=== PATIENT | female | born 1975 | race African-American/Black ===

== ENCOUNTER 2016-04-21 08:13 | Emergency (ER) | payer SELFPAY ==
[~2016-04-21] VITALS: Ht 170.2 cm; Wt 100.0 kg
[~2016-04-21 08:13] MED LIST: ACET325 PO; ALBU25IPRN INH; DEPA250T2 PO; PROZ20CA11 PO; RISP1 PO; ZOFR4TAB3 SL
[2016-04-21 08:35] VITALS: BP 136/85; PULSE 64; RESP 18; TEMP 97.8; O2SAT 96
[2016-04-21] MEDS ORDERED: MOXIFLOXACIN 0.5% OPHT SOLN 3 ML BTL RIGHT EYE ONE (09:15)
[2016-04-21] MEDS ORDERED: ERYTHROMYCIN 0.5% OPTH OINT 3.5 GM TUBO RIGHT EYE ONE (09:30)
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
[2016-04-21] MEDS ORDERED: ERYTOIN10 RIGHT EYE (10:21)
[2016-04-21] MEDS ORDERED: IBUP800T23 PO (10:22)
[2016-04-28] MEDS ORDERED: ALBU.5I NEB (11:20)
== END 2016-04-21 10:34 | disposition home or self-care (01) ==
LOC: NEPB 08:13
DX: S05.01XA Injury of conjunctiva and corneal abrasion without foreign body, right eye, initial encounter (principal); S61.202A Unspecified open wound of right middle finger without damage to nail, initial encounter; I10 Essential (primary) hypertension; F20.9 Schizophrenia, unspecified; F17.210 Nicotine dependence, cigarettes, uncomplicated; F12.90 Cannabis use, unspecified, uncomplicated; Y04.2XXA Assault by strike against or bumped into by another person, initial encounter
CPT/HCPCS: 12001; 73140

== ENCOUNTER 2017-04-07 22:52 | Observation (INO) | payer SELFPAY ==
[~2017-04-07] VITALS: Ht 170.2 cm; Wt 103.2 kg
[~2017-04-07 22:52] MED LIST changes: -ACET325 PO; +ALBU.5I NEB; -ALBU25IPRN INH; +ERYTOIN10 RIGHT EYE; +IBUP1TAB7 PO
[2017-04-07 23:28] VITALS: BP 117/64; PULSE 50; RESP 20; TEMP 98.9; O2SAT 96
[2017-04-07] MEDS ORDERED: SODIUM CHLOR 0.9% 1000 ML INJ 1,000 ML IV ONE (23:43)
[2017-04-07] MEDS ORDERED: SODIUM CHLORIDE 0.9% FLUSH 10 ML FLUSH IVF PRN (23:45)
--- NOTE | 2017-04-07 23:53 | PD ---
HPI Chief Complaint: Syncope/Near-Syncope Time Seen by Provider: 23:35 Travel History International Travel<30 days: No Contact w/Intl Traveler<30days: No Traveled to known affect area: No History of Present Illness HPI Patient is a 42-year-old female with history of hypertension, seizure disorder who presents to emergency room with complaints of syncopal episode. 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 Reports that she felt as if she was going to pass out so she sat down onto a nearby chair and had syncopal episode. Patient reports that she was "out" for a few minutes and then came to. Patient reports that the chest pain felt like a sharp stabbing sensation to the left that her chest, patient denies any shortness of breath and diaphoresis symptoms. Patient did report nausea with her symptoms. Patient at this time with no chest pain. Patient also with no headache or dizziness. Patient with no other complaints at this time. Patient denies any use of drugs or alcohol. Patient does smoke cigarettes. PFSH Past Medical History Asthma: Yes Anxiety: Yes Depression: Yes Diabetes: No Diminished Hearing: No Endocrine: No Gastrointestinal Disorders: No GERD: Yes Genitourinary: No Hypertension: Yes Immune Disorder: No Musculoskeletal: No Neurologic: No Psychiatric: Yes (SCHIZOPHRENIA) Reproductive: No Respiratory: Yes (asthma) Immunizations Current: No Migraines: Yes Schizophrenia: Yes Influenza Vaccination: No PNEUMOCCOCAL Vaccine (Year): 3 ?: Not LMP: 12-14-17 Menopausal: No : 6 Para: 5 Miscarriage: 0 : 1 Tubal Ligation: Yes Past Surgical History Abdominal Surgery: Yes (Gall bladder) Cholecystectomy: Yes Gynecologic Surgery: Yes (TUBAL) Social History Alcohol Use: Yes (Occasionally) Tobacco Use: Yes (1 ppd) Substance Use: Yes (Marijuana) Allergies-Medications (Allergen,Severity, Reaction): Coded Allergies: No Known Allergies (Verified , 04/28/16) Reported Meds & Prescriptions Reported Meds & Active Scripts Active Reported Albuterol Neb (Albuterol Sulfate) 2.5 Mg/0.5 Ml Neb 2.5 Mg NEB Q1H PRN Note: The Albuterol Sulfate Inhalation Solution is concentrated and must be diluted. Read complete instructions carefully before using. Review of Systems General / Constitutional: No: Fever Eyes: No: Visual changes HENT: No: Headaches Cardiovascular: Positive: Chest Pain or Discomfort, Syncope Respiratory: No: Shortness of Breath Gastrointestinal: No: Abdominal Pain Genitourinary: No: Dysuria Musculoskeletal: No: Pain Skin: No Rash Neurologic: Positive: Syncope, No: Weakness Psychiatric: No: Depression Endocrine: No: Polydipsia Hematologic/Lymphatic: No: Easy Bruising Physical Exam Narrative GENERAL: mild distress SKIN: Focused skin assessment warm/dry. HEAD: Atraumatic. Normocephalic. EYES: Pupils equal and round. No scleral icterus. No injection or drainage. ENT: No nasal bleeding or discharge. Mucous membranes pink and moist. NECK: Trachea midline. No JVD. CARDIOVASCULAR: Regular rate and rhythm. No murmur appreciated. RESPIRATORY: No accessory muscle use. Clear to auscultation. Breath sounds equal bilaterally. GASTROINTESTINAL: Abdomen soft, non-tender, nondistended. Hepatic and splenic margins not palpable. MUSCULOSKELETAL: No obvious deformities. No clubbing. No cyanosis. No edema. NEUROLOGICAL: Awake and alert. No obvious cranial nerve deficits. Motor grossly within normal limits. Normal speech. CN 2-12 grossly intact with no neurological deficits PSYCHIATRIC: Appropriate mood and affect; insight and judgment normal. Data Data Last Documented VS Vital Signs Date Time Temp Pulse Resp B/P (MAP) Pulse Ox O2 Delivery O2 Flow Rate FiO2 04/07/17 23:59 51 20 135/79 (97) 100 Room Air 04/07/17 23:28 98.9 Orders Orders Electrocardiogram (04/07/17 ) Ed Urine Pregnancytest Poc (04/07/17 23:43) Complete Blood Count With Diff (04/07/17 23:43) Comprehensive Metabolic Panel (04/07/17 23:43) Magnesium (Mg) (04/07/17 23:43) B-Type Natriuretic Peptide (04/07/17 23:43) Ckmb (Isoenzyme) Profile (04/07/17 23:43) Troponin I (04/07/17 23:43) Act Partial Throm Time (Ptt) (04/07/17 23:43) Prothrombin Time / Inr (Pt) (04/07/17 23:43) Urinalysis - C+S If Indicated (04/07/17 23:43) Chest, Single Ap (04/07/17 23:43) Ecg Monitoring (04/07/17 23:43) Iv Access Insert/Monitor (04/07/17 23:43) Oximetry (04/07/17 23:43) Sodium Chloride 0.9% Flush (Ns Flush) (04/07/17 23:45) Sodium Chlor 0.9% 1000 Ml Inj (Ns 1000 M (04/07/17 23:43) Drug Screen, Random Urine (04/07/17 23:50) Aspirin Chew (Aspirin Chew) (04/08/17 00:00) CKMB (04/07/17 23:45) CKMB% (04/07/17 23:45) Labs Laboratory Tests Test 04/07/17 23:45 White Blood Count 7.7 TH/MM3 Red Blood Count 3.86 MIL/MM3 Hemoglobin 11.5 GM/DL Hematocrit 32.9 % Mean Corpuscular Volume 85.1 FL Mean Corpuscular Hemoglobin 29.8 PG Mean Corpuscular Hemoglobin Concent 35.0 % Red Cell Distribution Width 15.4 % Platelet Count 303 TH/MM3 Mean Platelet Volume 8.3 FL Neutrophils (%) (Auto) 45.3 % Lymphocytes (%) (Auto) 41.9 % Monocytes (%) (Auto) 8.3 % Eosinophils (%) (Auto) 3.5 % Basophils (%) (Auto) 1.0 % Neutrophils # (Auto) 3.5 TH/MM3 Lymphocytes # (Auto) 3.2 TH/MM3 Monocytes # (Auto) 0.6 TH/MM3 Eosinophils # (Auto) 0.3 TH/MM3 Basophils # (Auto) 0.1 TH/MM3 CBC Comment DIFF FINAL Differential Comment Prothrombin Time 10.7 SEC Prothromb Time International Ratio 1.1 RATIO Activated Partial Thromboplast Time 27.0 SEC Urine Color COLORLESS Urine Turbidity CLEAR Urine pH 6.0 Urine Specific [place] 1.003 Urine Protein NEG mg/dL Urine Glucose (UA) NEG mg/dL Urine Ketones NEG mg/dL Urine Occult Blood NEG Urine Nitrite NEG Urine Bilirubin NEG Urine Urobilinogen LESS THAN 2.0 MG/DL Urine Leukocyte Esterase NEG Urine WBC LESS THAN 1 /hpf Urine Squamous Epithelial Cells <1 /hpf Microscopic Urinalysis Comment CULT NOT INDICATED Blood Urea Nitrogen 10 MG/DL Creatinine 1.12 MG/DL Random Glucose 88 MG/DL Total Protein 7.4 GM/DL Albumin 3.5 GM/DL Calcium Level 8.6 MG/DL Magnesium Level 1.9 MG/DL Alkaline Phosphatase 60 U/L Aspartate Amino Transf (AST/SGOT) 13 U/L Alanine Aminotransferase (ALT/SGPT) 14 U/L Total Bilirubin 0.5 MG/DL Sodium Level 141 MEQ/L Potassium Level 3.1 MEQ/L Chloride Level 106 MEQ/L Carbon Dioxide Level 24.5 MEQ/L Anion Gap 11 MEQ/L Estimat Glomerular Filtration Rate 64 ML/MIN Total Creatine Kinase 214 U/L Creatine Kinase MB 0.6 NG/ML Creatine Kinase MB % 0.3 % Troponin I LESS THAN 0.02 NG/ML B-Type Natriuretic Peptide 31 PG/ML Urine Opiates Screen NEG Urine Barbiturates Screen NEG Urine Amphetamines Screen NEG Urine Benzodiazepines Screen NEG Urine Cocaine Screen NEG Urine Cannabinoids Screen POS MDM Medical Decision Making Medical Screen Exam Complete: Yes Emergency Medical Condition: Yes Medical Record Reviewed: Yes Interpretation(s) EKG at 2344: Sinus dandre at 47bpm, t wave inversion V1-V2- similar when compared to ekg from 11/21/15 Vital Signs Date Time Temp Pulse Resp B/P (MAP) Pulse Ox O2 Delivery O2 Flow Rate FiO2 04/07/17 23:28 98.9 50 20 117/64 (81) 96 Differential Diagnosis ACS, arrhythmia, electrolyte abnormality, pneumothorax, PE Narrative Course Patient is a 42-year-old female who presents to emergency room after she began to have left sided chest pain while at work and then suffered a syncopal episode. Patient this time with no complaints, denies any headache or dizziness or shortness of breath. During the course of the patients emergency department visit, the patients history, examination, and differential diagnosis were reviewed with the patient. The patient was placed on a bus driver/monitor with oximetry and frequent blood pressure monitoring. The patient had a 20-gauge IV access obtained and blood work sent for analysis. The patient was initially provided aspirin as well as IV fluids. The patients laboratory studies were reviewed and remarkable for: Laboratory Tests Test 04/07/17 23:45 White Blood Count 7.7 TH/MM3 (4.0-11.0) Red Blood Count 3.86 MIL/MM3 (4.00-5.30) Hemoglobin 11.5 GM/DL (11.6-15.3) Hematocrit 32.9 % (35.0-46.0) Mean Corpuscular Volume 85.1 FL (80.0-100.0) Mean Corpuscular Hemoglobin 29.8 PG (27.0-34.0) Mean Corpuscular Hemoglobin Concent 35.0 % (32.0-36.0) Red Cell Distribution Width 15.4 % (11.6-17.2) Platelet Count 303 TH/MM3 (150-450) Mean Platelet Volume 8.3 FL (7.0-11.0) Neutrophils (%) (Auto) 45.3 % (16.0-70.0) Lymphocytes (%) (Auto) 41.9 % (9.0-44.0) Monocytes (%) (Auto) 8.3 % (0.0-8.0) Eosinophils (%) (Auto) 3.5 % (0.0-4.0) Basophils (%) (Auto) 1.0 % (0.0-2.0) Neutrophils # (Auto) 3.5 TH/MM3 (1.8-7.7) Lymphocytes # (Auto) 3.2 TH/MM3 (1.0-4.8) Monocytes # (Auto) 0.6 TH/MM3 (0-0.9) Eosinophils # (Auto) 0.3 TH/MM3 (0-0.4) Basophils # (Auto) 0.1 TH/MM3 (0-0.2) CBC Comment DIFF FINAL Differential Comment Prothrombin Time 10.7 SEC (9.8-11.6) Prothromb Time International Ratio 1.1 RATIO Activated Partial Thromboplast Time 27.0 SEC (24.3-30.1) Urine Color COLORLESS (YELLW/STRAW) Urine Turbidity CLEAR (CLEAR) Urine pH 6.0 (5.0-8.5) Urine Specific [place] 1.003 (1.002-1.035) Urine Protein NEG mg/dL (NEG-TRACE) Urine Glucose (UA) NEG mg/dL (NEG) Urine Ketones NEG mg/dL (NEG) Urine Occult Blood NEG (NEG) Urine Nitrite NEG (NEG) Urine Bilirubin NEG (NEG) Urine Urobilinogen LESS THAN 2.0 MG/DL (LESS Urine Leukocyte Esterase NEG (NEG) Urine WBC LESS THAN 1 /hpf (0-5) Urine Squamous Epithelial Cells <1 /hpf (0-5) Microscopic Urinalysis Comment CULT NOT INDICATED Blood Urea Nitrogen 10 MG/DL (7-18) Creatinine 1.12 MG/DL (0.50-1.00) Random Glucose 88 MG/DL (74-106) Total Protein 7.4 GM/DL (6.4-8.2) Albumin 3.5 GM/DL (3.4-5.0) Calcium Level 8.6 MG/DL (8.5-10.1) Magnesium Level 1.9 MG/DL (1.5-2.5) Alkaline Phosphatase 60 U/L (45-117) Aspartate Amino Transf (AST/SGOT) 13 U/L (15-37) Alanine Aminotransferase (ALT/SGPT) 14 U/L (10-53) Total Bilirubin 0.5 MG/DL (0.2-1.0) Sodium Level 141 MEQ/L (136-145) Potassium Level 3.1 MEQ/L (3.5-5.1) Chloride Level 106 MEQ/L (98-107) Carbon Dioxide Level 24.5 MEQ/L (21.0-32.0) Anion Gap 11 MEQ/L (5-15) Estimat Glomerular Filtration Rate 64 ML/MIN (>89) Total Creatine Kinase 214 U/L (26-192) Creatine Kinase MB 0.6 NG/ML (0.5-3.6) Creatine Kinase MB % 0.3 % (0.0-4.0) Troponin I LESS THAN 0.02 NG/ML B-Type Natriuretic Peptide 31 PG/ML (0-100) Urine Opiates Screen NEG (NEG) Urine Barbiturates Screen NEG (NEG) Urine Amphetamines Screen NEG (NEG) Urine Benzodiazepines Screen NEG (NEG) Urine Cocaine Screen NEG (NEG) Urine Cannabinoids Screen POS (NEG) I reviewed all labs and studies with patient in detail. Patient currently symptomatic free at this time. Plan to obs for syncope with chest pain Case reviewed with Dr. Tejeda who accepts pt to service Diagnosis Primary Impression: Syncope and collapse Additional Impression: Chest pain Admitting Information Admitting Physician Requests: Observation Giovanna Parrish DO Apr 07, 2017 23:53
[2017-04-07 23:59] VITALS: BP 135/79; PULSE 51; RESP 20; O2SAT 100
[2017-04-08] VITALS (11 sets, daily range): BP systolic 103–153; BP diastolic 56–87; PULSE 46–75; RESP 16–22; TEMP 97.8–98.7; O2SAT 95–100
[2017-04-08] MEDS ORDERED: ASPIRIN 81 MG CHEW TAB PO ONE
[2017-04-08 00:06] LABS: AUTOMATED NEUTROPHIL # 3.5 TH/MM3 (1.8-7.7); BASOPHIL # 0.1 TH/MM3 (0-0.2); EOSINOPHIL # 0.3 TH/MM3 (0-0.4); EOSINOPHIL % 3.5 % (0.0-4.0); HEMATOCRIT 32.9 % (35.0-46.0); HEMOGLOBIN 11.5 GM/DL (11.6-15.3); LYMPH % 41.9 % (9.0-44.0); LYMPHOCYTE # 3.2 TH/MM3 (1.0-4.8); MEAN CELL VOLUME 85.1 FL (80.0-100.0); MEAN CORPUSCULAR HEMOGLOBIN 29.8 PG (27.0-34.0); MEAN PLATELET VOLUME 8.3 FL (7.0-11.0); MONO % 8.3 % (0.0-8.0); MONOCYTE # 0.6 TH/MM3 (0-0.9); NEUT % 45.3 % (16.0-70.0); PLATELET COUNT 303 TH/MM3 (150-450); RED BLOOD COUNT 3.86 MIL/MM3 (4.00-5.30); RED CELL DISTRIBUTION WIDTH 15.4 % (11.6-17.2); WHITE BLOOD COUNT 7.7 TH/MM3 (4.0-11.0)
[2017-04-08 00:14] LABS: BILIRUBIN, URINE NEG (NEG); BLOOD, URINE NEG (NEG); GLUCOSE,URINE NEG (NEG); KETONE, URINE NEG (NEG); NITRITE,URINE NEG (NEG); SQUAMOUS EPITHELIAL CELL URINE <1 /hpf (0-5); URINE COLOR COLORLESS (YELLW/STRAW); URINE LEUKOCYTE ESTERASE NEG (NEG)
[2017-04-08 00:19] LABS: INTERNATIONAL NORMALIZED RATIO 1.1 RATIO; PROTHROMBIN TIME - PATIENT 10.7 SEC (9.8-11.6)
[2017-04-08 00:22] LABS: ALBUMIN 3.5 GM/DL (3.4-5.0); ALT (GPT) 14 U/L (10-53); AST (GOT) 13 U/L (15-37); BICARBONATE 24.5 MEQ/L (21.0-32.0); BLOOD UREA NITROGEN 10 MG/DL (7-18); CALCIUM 8.6 MG/DL (8.5-10.1); CHLORIDE 106 MEQ/L (98-107); CREATININE 1.12 MG/DL (0.50-1.00); GLOMERULAR FILTRATION RATE 64 ML/MIN (>89); GLUCOSE,RANDOM 88 MG/DL (74-106); MAGNESIUM 1.9 MG/DL (1.5-2.5); SODIUM (NA) 141 MEQ/L (136-145)
[2017-04-08 00:27] LABS: ALKALINE PHOSPHATASE 60 U/L (45-117); TOTAL BILIRUBIN ADULT 0.5 MG/DL (0.2-1.0); TOTAL PROTEIN 7.4 GM/DL (6.4-8.2); TROPONIN I LESS THAN 0.02 NG/ML (0.02-0.05)
[2017-04-08] MEDS ORDERED: NITROGLYCERIN 2% OINT 1 GM PACKET TOPICAL PRN (00:45)
[2017-04-08] MEDS ORDERED: ONDANSETRON HCL 4 MG/2 ML VIAL IVP PRN (00:45)
[2017-04-08] MEDS ORDERED: SENNOSIDES 8.6 MG TAB PO PRN (00:45)
[2017-04-08] MEDS ORDERED: MORPHINE SULFATE 2 MG/ML INJ IV PUSH PRN (00:45)
[2017-04-08] MEDS ORDERED: LACTULOSE SYRUP 20 GM/30 ML CUP PO PRN (00:45)
[2017-04-08] MEDS ORDERED: ACETAMINOPHEN 325 MG TAB PO PRN (00:45)
[2017-04-08] MEDS ORDERED: BISACODYL 10 MG SUPP RECTAL PRN (00:45)
[2017-04-08] MEDS ORDERED: ACETAMINOPHEN/HYDROcodone 325 MG/5 MG TAB PO PRN (00:45)
[2017-04-08] MEDS ORDERED: SODIUM CHLORIDE 0.9% FLUSH 10 ML FLUSH IV FLUSH PRN (00:45)
[2017-04-08] MEDS ORDERED: POTASSIUM CHLORIDE 20 MEQ CONTROLLED RELEASE TAB PO ONE (00:45)
[2017-04-08] MEDS ORDERED: MAGNESIUM HYDROXIDE SUSP 30 ML CUP PO PRN (00:45)
--- NOTE | 2017-04-08 00:51 | RADRPT ---
EXAM DATE/TIME: 04/08/2017 00:08 [facility] COMPARISON: CHEST SINGLE AP, November 21, 2015, 5:05. INDICATIONS : Low heart rate, shortness of breath, and left sided chest pain. MEDICAL HISTORY : None. SURGICAL HISTORY : None. ENCOUNTER: Initial ACUITY: 1 day PAIN SCORE: 4/10 LOCATION: Left chest FINDINGS: A single view of the chest demonstrates the lungs to be symmetrically aerated without evidence of mas s, infiltrate or effusion. The cardiomediastinal contours are unremarkable. Osseous structures are intact. CONCLUSION: No acute disease. Elie Lee MD on April 08, 2017 at 0:48 Board Certified Radiologist. This report was verified electronically.
[2017-04-08] MEDS: SODIUM CHLOR 0.9% 1000 ML INJ 1,000 ML IV SCH ×3 (01:53→20:44)
--- NOTE | 2017-04-08 02:52 | HHI.HP ---
[facility] No Primary Care Physician Admission Diagnosis Chest pain/Syncope and Collapse Diagnoses: (1) Syncope Diagnosis: Principal (2) Chest pain Diagnosis: Principal (3) Bradycardia Diagnosis: Principal (4) Rhabdomyolysis Diagnosis: Principal (5) Renal insufficiency Diagnosis: Principal (6) Hypokalemia Diagnosis: Principal (7) HTN (hypertension) Diagnosis: Principal (8) Tobacco abuse Diagnosis: Principal Travel History International Travel<30 Days: No Contact w/Intl Traveler <30 Da: No Traveled to Known Affected Are: No History of Present Illness This is a 42 year-old female w/ a PMH of Anxiety, Depression, Schizophrenia, Migraines, HTN and Tobacco Abuse who presented to the ER after syncopal event. Per pt she was at work when she had acute onset of left-sided chest pain, reports associated lightheadedness/dizziness and subsequent syncopal event. No LOC. Denies fever, chills, cough or SOB. No h/o similar symptoms in the past. No reported seizure like activity. On arrival, BP 135/79, HR 51, O2 sat 100% on RA, Afebrile. CBC unremarkable. Creatinine 1.12, previously 1.10 on . K+ 3.1. Troponin negative. CPK 214. INR 1.1. Urine Drug Screen positive for THC. UA negative. CXR with no acute findings. Review of Systems Except as stated in HPI: all other systems reviewed are Neg ROS: 14 point review of systems otherwise negative. Past Family Social History Past Medical History PMH: Anxiety, Depression, Schizophrenia, Migraines, HTN and Tobacco Abuse Past Surgical History PAST SURGICAL HISTORY: Cholecystectomy, Tubal Ligation Allergies: Coded Allergies: No Known Allergies (Verified Allergy, Unknown, 04/08/17) Family History PAST FAMILY HISTORY: Reviewed. No h/o DM or CADk Social History PAST SOCIAL HISTORY: Occasional alcohol. Smokes 1ppd. +Marijuana. Physical Exam Vital Signs Vital Signs Date Time Temp Pulse Resp B/P (MAP) Pulse Ox O2 Delivery O2 Flow Rate FiO2 04/08/17 01:58 97.9 48 17 117/75 (89) 100 04/08/17 01:58 117/ 04/08/17 01:19 52 20 151/87 (108) 97 Room Air 04/07/17 23:59 51 20 135/79 (97) 100 Room Air 04/07/17 23:28 98.9 50 20 117/64 (81) 96 Physical Exam PE: GENERAL: Middle-aged female in no acute distress. HEENT: PERRLA, EOMI. No scleral icterus or conjunctival pallor. No lid lag or facial droop. CARDIOVASCULAR: Regular rate and rhythm. No obvious murmurs to auscultation. No chest tenderness to palpation. RESPIRATORY: No obvious rhonchi or wheezing. Clear to auscultation. Breath sounds equal bilaterally. GASTROINTESTINAL: Abdomen soft, non-tender, nondistended. BS normal. MUSCULOSKELETAL: Extremities without clubbing, cyanosis, or edema. No obvious deformities. NEUROLOGICAL: Awake, alert and oriented x4. No focal neurologic deficits. Moving both upper and lower extremities spontaneously. Laboratory Laboratory Tests Test 04/07/17 23:45 White Blood Count 7.7 Red Blood Count 3.86 Hemoglobin 11.5 Hematocrit 32.9 Mean Corpuscular Volume 85.1 Mean Corpuscular Hemoglobin 29.8 Mean Corpuscular Hemoglobin Concent 35.0 Red Cell Distribution Width 15.4 Platelet Count 303 Mean Platelet Volume 8.3 Neutrophils (%) (Auto) 45.3 Lymphocytes (%) (Auto) 41.9 Monocytes (%) (Auto) 8.3 Eosinophils (%) (Auto) 3.5 Basophils (%) (Auto) 1.0 Neutrophils # (Auto) 3.5 Lymphocytes # (Auto) 3.2 Monocytes # (Auto) 0.6 Eosinophils # (Auto) 0.3 Basophils # (Auto) 0.1 CBC Comment DIFF FINAL Differential Comment Prothrombin Time 10.7 Prothromb Time International Ratio 1.1 Activated Partial Thromboplast Time 27.0 Urine Color COLORLESS Urine Turbidity CLEAR Urine pH 6.0 Urine Specific Krebs 1.003 Urine Protein NEG Urine Glucose (UA) NEG Urine Ketones NEG Urine Occult Blood NEG Urine Nitrite NEG Urine Bilirubin NEG Urine Urobilinogen LESS THAN 2.0 Urine Leukocyte Esterase NEG Urine WBC LESS THAN 1 Urine Squamous Epithelial Cells <1 Microscopic Urinalysis Comment CULT NOT INDICATED Blood Urea Nitrogen 10 Creatinine 1.12 Random Glucose 88 Total Protein 7.4 Albumin 3.5 Calcium Level 8.6 Magnesium Level 1.9 Alkaline Phosphatase 60 Aspartate Amino Transf (AST/SGOT) 13 Alanine Aminotransferase (ALT/SGPT) 14 Total Bilirubin 0.5 Sodium Level 141 Potassium Level 3.1 Chloride Level 106 Carbon Dioxide Level 24.5 Anion Gap 11 Estimat Glomerular Filtration Rate 64 Total Creatine Kinase 214 Creatine Kinase MB 0.6 Creatine Kinase MB % 0.3 Troponin I LESS THAN 0.02 B-Type Natriuretic Peptide 31 Urine Opiates Screen NEG Urine Barbiturates Screen NEG Urine Amphetamines Screen NEG Urine Benzodiazepines Screen NEG Urine Cocaine Screen NEG Urine Cannabinoids Screen POS Result Diagram: 04/07/17234404/07/172344 Caprini VTE Risk Assessment Caprini VTE Risk Assessment: No/Low Risk (score <= 1) Caprini Risk Assessment Model Point Value = 1 Point Value = 2 Point Value = 3 Point Value = 5 Age 41-60 Minor surgery BMI > 25 kg/m2 Swollen legs Varicose veins or History of unexplained or recurrent spontaneous Oral contraceptives or hormone replacement Sepsis (< 1 month) Serious lung disease, including pneumonia (< 1 month) Abnormal pulmonary function Acute myocardial infarction Congestive heart failure (< 1 month) History of inflammatory bowel disease Medical patient at bed rest Age 61-74 Arthroscopic surgery Major open surgery (> 45 min) Laparoscopic surgery (> 45 min) Malignancy Confined to bed (> 72 hours) Immobilizing plaster cast Central venous access Age >= 75 History of VTE Family history of VTE Factor V Leiden Prothrombin [id number] Lupus anticoagulant Anticardiolipin antibodies Elevated serum homocysteine Heparin-induced thrombocytopenia Other congenital or acquired thrombophilia Stroke (< 1 month) Elective arthroplasty Hip, pelvis, or leg fracture Acute spinal cord injury (< 1 month) Prophylaxis Regimen Total Risk Factor Score Risk Level Prophylaxis Regimen 0-1 Low Early ambulation 2 Moderate Order ONE of the following: *Sequential Compression Device (SCD) *Heparin 5000 units SQ BID 3-4 Higher Order ONE of the following medications: *Heparin 5000 units SQ TID *Enoxaparin/Lovenox 40 mg SQ daily (WT < 150 kg, CrCl > 30 mL/min) *Enoxaparin/Lovenox 30 mg SQ daily (WT < 150 kg, CrCl > 10-29 mL/min) *Enoxaparin/Lovenox 30 mg SQ BID (WT < 150 kg, CrCl > 30 mL/min) AND/OR *Sequential Compression Device (SCD) 5 or more Highest Order ONE of the following medications: *Heparin 5000 units SQ TID (Preferred with Epidurals) *Enoxaparin/Lovenox 40 mg SQ daily (WT < 150 kg, CrCl > 30 mL/min) *Enoxaparin/Lovenox 30 mg SQ daily (WT < 150 kg, CrCl > 10-29 mL/min) *Enoxaparin/Lovenox 30 mg SQ BID (WT < 150 kg, CrCl > 30 mL/min) AND *Sequential Compression Device (SCD) Assessment and Plan Problem List: (1) Syncope ICD Code: R55 - Syncope and collapse (2) Chest pain ICD Code: R07.9 - Chest pain, unspecified Status: Acute (3) Bradycardia ICD Code: R00.1 - Bradycardia, unspecified (4) HTN (hypertension) ICD Code: I10 - Essential (primary) hypertension (5) Hypokalemia ICD Code: E87.6 - Hypokalemia (6) Renal insufficiency ICD Code: N28.9 - Disorder of kidney and ureter, unspecified (7) Rhabdomyolysis ICD Code: M62.82 - Rhabdomyolysis (8) Tobacco abuse ICD Code: Z72.0 - Tobacco use Assessment and Plan A/P: 1. Syncope: acute onset of lightheadedness/dizziness w/ subsequent syncopal event. No head trauma reported. Admit for Observation, telemetry. Initial trop negative. EKG w/ no acute ischemia. Check Echo. 2. Bradycardia: HR 40-50's, chronic in comparison to previous vitals, possible symptomatic bradycardia. Plan as above. Cardio eval as needed. 3. Chest Pain: Initial trop negative, EKG w/ no acute ischemia. Check serial trop. NTG/Morphine prn. ASA, Statin. Hold B-arielle in light of bradycardia. 4. Rhabdomyolysis: Mild. CPK 214. Urine Drug Screen positive only for Marijuana. IVF for hydration, repeat CPK for trend. 5. Hypokalemia: K+ 3.1. Will replace and recheck in am. 6. Renal Insufficiency: Creatinine 1.12, previously 1.10 on 04/07/16. IVF for hydration, repeat labs. 7. Tobacco Abuse: Pt counselled. Ativan prn. No NicoDerm to avoid vasoconstriction. 8. DVT Prophylaxis: SCD/Teds. 9. Social work for d/c planning as needed. 10. Case discussed w/ ER physician at length. Dayna Tejeda MD Apr 08, 2017 02:52
[2017-04-08] MEDS: DOCUSATE SODIUM 50 MG/SENNA 8.6 MG TAB PO SCH ×2 (08:55→21:16)
[2017-04-08] MEDS: ASPIRIN EC 81 MG TABEC PO SCH (08:55)
[2017-04-08] MEDS: SODIUM CHLORIDE 0.9% FLUSH 10 ML FLUSH IV FLUSH SCH ×2 (08:56→21:16)
--- NOTE | 2017-04-08 11:26 | HHI.PR ---
Subjective Remarks Follow-up for atypical chest pain and syncope Patient stated that she has been very stressed out and usually when she is very stressed she does get this type of chest pain. She also stated that she's been doing a lot of lifting. Denied any chest pain, palpitation, lightheadedness dizziness. Patient has been in bed all day. On telemetry heart rate in the 40s but did go down to the 30s. She is asymptomatic but she has not been ambulating during her hospitalization. Objective Vitals Vital Signs Date Time Temp Pulse Resp B/P (MAP) Pulse Ox O2 Delivery O2 Flow Rate FiO2 04/08/17 07:46 98.7 52 22 106/56 (73) 98 04/08/17 04:00 52 04/08/17 03:25 97.9 56 16 103/59 (74) 99 04/08/17 01:58 97.9 48 17 117/75 (89) 100 04/08/17 01:58 117/ 04/08/17 01:19 52 20 151/87 (108) 97 Room Air 04/07/17 23:59 51 20 135/79 (97) 100 Room Air 04/07/17 23:28 98.9 50 20 117/64 (81) 96 I/O 04/07/17 04/07/17 04/07/17 04/08/17 04/08/17 04/08/17 07:00 15:00 23:00 07:00 15:00 23:00 Intake Total 750 ml Balance 750 ml Intake Oral 750 ml # Voids 2 Result Diagram: 04/07/17 2345 04/07/17 2345 Imaging Last Impressions Chest X-Ray 04/07/17 2343 Signed Impressions: Service Date/Time: Saturday, April 08, 2017 00:08 - CONCLUSION: No acute disease. Elie Lee MD Objective Remarks GENERAL: In no acute distress NECK: Supple, trachea midline. No JVD or lymphadenopathy. CARDIOVASCULAR: Rate bradycardia and rhythm without murmurs, gallops, or rubs. RESPIRATORY: Breath sounds equal bilaterally. No accessory muscle use. GASTROINTESTINAL: Abdomen soft, non-tender, nondistended. MUSCULOSKELETAL: No cyanosis, or edema. BACK: Nontender without obvious deformity. No CVA tenderness. Medications and IVs Current Medications Sodium Chloride (NS Flush) 2 ml UNSCH PRN IVF FLUSH AFTER USING IV ACCESS; Start 04/07/17 at 23:45; Stop 04/08/17 at 00:49; Status DC Sodium Chloride 1,000 ml @ 1,000 mls/hr Q1H ONCE IV Last administered on 04/07 23:43; Start 04/07/17 at 23:43; Stop 04/08/17 at 00:42; Status DC Aspirin (Aspirin Chew) 162 mg ONCE ONCE PO Last administered on 04/08/17 00: 00; Start 04/08/17 at 00:00; Stop 04/08/17 at 00:01; Status DC Sodium Chloride 1,000 ml @ 100 mls/hr Q10H IV Last administered on 04/08/17 01:53; Start 04/08/17 at 00:44 Sodium Chloride (NS Flush) 2 ml UNSCH PRN IV FLUSH FLUSH AFTER USING IV ACCESS ; Start 04/08/17 at 00:45 Sodium Chloride (NS Flush) 2 ml BID IV FLUSH ; Start 04/08/17 at 09:00 Ondansetron HCl (Zofran Inj) 4 mg Q6H PRN IVP NAUSEA OR VOMITING; Start at 00:45 Acetaminophen (Tylenol) 650 mg Q6H PRN PO FEVER/PAIN SCALE 1 TO 2; Start 04/08 at 00:45 Acetaminophen/ Hydrocodone Bitart (Henderson 5-325 Mg) 1 tab Q4H PRN PO PAIN SCALE 3 TO 5 Last administered on 04/08/17 02:13; Start 04/08/17 at 00:45 Morphine Sulfate (Morphine Inj) 2 mg Q3H PRN IV PUSH Pain 6-10; Start at 00:45 Senna/Docusate Sodium (Ame-Colace) 1 tab BID PO Last administered on 08:55; Start 04/08/17 at 09:00 Magnesium Hydroxide (Milk Of Magnesia Liq) 30 ml Q12H PRN PO Mild constipation ; Start 04/08/17 at 00:45 Sennosides (Senokot) 17.2 mg Q12H PRN PO Moderate constipation; Start at 00:45 Bisacodyl (Dulcolax Supp) 10 mg DAILY PRN RECTAL SEVERE CONSITIPATION/ IF NPO; Start 04/08/17 at 00:45 Lactulose (Lactulose Liq) 30 ml DAILY PRN PO SEVERE CONSITIPATION/ IF PO; Start 04/08/17 at 00:45 Nitroglycerin (Nitroglycerin 2% Oint) 0.5 inch Q6HR PRN TOPICAL CHEST PAIN Last administered on 04/08/17 01:18; Start 04/08/17 at 00:45 Aspirin (Ecotrin Ec) 81 mg DAILY PO Last administered on 04/08/17 08:55; Start 04/08/17 at 09:00 Potassium Chloride (KCl) 40 meq ONCE ONCE PO Last administered on 04/08/17 00:45; Start 04/08/17 at 00:45; Stop 04/08/17 at 00:52; Status DC A/P Problem List: (1) Syncope ICD Code: R55 - Syncope and collapse (2) Chest pain ICD Code: R07.9 - Chest pain, unspecified Status: Acute (3) Bradycardia ICD Code: R00.1 - Bradycardia, unspecified (4) HTN (hypertension) ICD Code: I10 - Essential (primary) hypertension (5) Hypokalemia ICD Code: E87.6 - Hypokalemia (6) Renal insufficiency ICD Code: N28.9 - Disorder of kidney and ureter, unspecified (7) Rhabdomyolysis ICD Code: M62.82 - Rhabdomyolysis (8) Tobacco abuse ICD Code: Z72.0 - Tobacco use Assessment and Plan This is a 42-year-old female presented with a syncopal episode and atypical chest pain Atypical chest pain -Most likely musculoskeletal versus anxiety. Pain is reproducible palpitation. Patient also stated that when she gets a lot of stress she does develop these type of chest pain. -Troponins are negative. Pending Echo. She is asymptomatic. Bradycardia -Patient her weight has been the 40s and today in the 30s. She is asymptomatic but is not ambulating. I reviewed her medical records and usually her heart rate isnt this low. Will consult [place] for further recommendation. Syncope: acute onset of lightheadedness/dizziness w/ subsequent syncopal event. No head trauma reported. -May be secondary to anxiety versus panic attack. It also may be due to symptomatic bradycardia but the symptoms are persistent. Hypokalemia: K+ 3.1. -Replenish as needed. Still pending last from this morning. Tobacco Abuse: Pt counselled. Ativan prn. No NicoDerm to avoid vasoconstriction. DVT Prophylaxis: SCD/Teds. Discharge Planning Pending echo and [facility] [place] consult. If [facility] [place] does not want further intervention and echo is negative possible discharge later today. Discussed case with nurse. Sanna Swift MD Apr 08, 2017 11:26
[2017-04-08 12:36] LABS: CHOLESTEROL 140 MG/DL (120-200); TRIGLYCERIDES 75 MG/DL (42-150)
[2017-04-08 12:45] LABS: CHOLESTEROL/ HDL RATIO 2.92 RATIO; HDL CHOLESTEROL 47.9 MG/DL (40.0-60.0); LDL CHOLESTEROL 77 MG/DL (0-99); TROPONIN I LESS THAN 0.02 NG/ML (0.02-0.05)
--- NOTE | 2017-04-08 14:53 | ECHRPT ---
Indication: SOB CONCLUSIONS The left ventricular systolic function is hyperdynamic with an estimated ejection fraction in the ra nge of 65- 70%. Normal left ventricular size. Wall thickness is normal. No regional wall motion abnormalities are present. Trace mitral valve regurgitation. There is trace tricuspid valve regurgitation. The estimated pulmonary arterial pressure is 25 mmHg. BP: / HR: Rhythm: Sinus MEASUREMENTS (Male / Female) Normal Values Technical Quality:Good 2D ECHO LV Diastolic Diameter PLAX 4.2 cm 4.2 - 5.9 / 3.9 - 5.3 cm LV Systolic Diameter PLAX 2.6 cm IVS Diastolic Thickness 1.0 cm 0.6 - 1.0 / 0.6 - 0.9 cm LVPW Diastolic Thickness 1.0 cm 0.6 - 1.0 / 0.6 - 0.9 cm LV Relative Wall Thickness 0.5 RV Internal Dim ED PLAX 2.5 cm LVOT Diameter 1.9 cm LA Systolic Diameter LX 3.8 cm 3.0 - 4.0 / 2.7 - 3.8 cm LV Ejection Fraction MOD 4C 65.3 % LV Ejection Fraction 4C AL 65.7 % M-MODE Aortic Root Diameter MM 3.2 cm LA Systolic Diameter MM 3.9 cm LA Ao Ratio MM 1.2 AV Cusp Separation MM 1.9 cm DOPPLER AV Peak Velocity 141.0 cm/s AV Peak Gradient 8.0 mmHg LVOT Peak Velocity 135.0 cm/s LVOT Peak Gradient 7.3 mmHg AV Area Cont Eq pk 2.7 cm MV Area PHT 2.8 cm Mitral E Point Velocity 77.3 cm/s Mitral A Point Velocity 57.8 cm/s Mitral E to A Ratio 1.3 LV E' Lateral Velocity 10.5 cm/s Mitral E to LV E' Lateral Ratio 7.4 LV E' Septal Velocity 9.4 cm/s Mitral E to LV E' Septal Ratio 8.3 TR Peak Velocity 194.0 cm/s TR Peak Gradient 15.1 mmHg Right Atrial Pressure 10.0 mmHg Pulmonary Artery Systolic Pressu 25.1 mmHg Right Ventricular Systolic Press 25.1 mmHg PV Peak Velocity 76.0 cm/s PV Peak Gradient 2.3 mmHg FINDINGS LEFT VENTRICLE The left ventricular systolic function is hyperdynamic with an estimated ejection fraction in the ra nge of 65- 70%. Normal left ventricular size. Wall thickness is normal. No regional wall motion abnormalities are present. RIGHT VENTRICLE Normal right ventricular size and systolic function. LEFT ATRIUM The left atrial size is normal. RIGHT ATRIUM The right atrial size is normal. ATRIAL SEPTUM Normal atrial septal thickness without atrial level shunting by limited color doppler interrogation. AORTA The aortic root and proximal ascending aorta are normal in size on limited imaging. MITRAL VALVE Structurally normal mitral valve. Trace mitral valve regurgitation. AORTIC VALVE Trileaflet aortic valve. No aortic valve stenosis or regurgitation. TRICUSPID VALVE Structurally normal tricuspid valve. There is trace tricuspid valve regurgitation. The estimated pulmonary arterial pressure is 25.1 mmHg. PULMONARY VALVE No pulmonary valve regurgitation or stenosis. VESSELS The inferior vena cava is normal in size. PERICARDIUM No pericardial effusion. Cristina Ho MD, FACC (Electronically Signed) Final Date:08 April 2017 14:52
--- NOTE | 2017-04-08 17:40 | MB ---
cc: ROBBYHUNG DATE OF CONSULTATION: 04/08/2017. REASON FOR CONSULTATION: HISTORY OF PRESENT ILLNESS: Ms. Jackson is a 42-year-old black female with a history of depression, anxiety, schizophrenia, migraine headaches, hypertension, smoking. She developed left-sided sharp atypical chest discomfort. She had dizziness, lightheadedness and eventually passed out. She has not had any excessive shortness of breath. Her evaluation so far is unremarkable. PAST MEDICAL HISTORY: Positive for: 1. Anxiety. 2. Depression. 3. Schizophrenia. 4. Migraine headaches. 5. Hypertension. 6. History of cholecystectomy. 7. History of tubal ligation. ALLERGIES: NONE. SOCIAL HISTORY: The patient smokes one pack a day. She smokes marijuana. She drinks alcohol occasionally. MEDICATIONS: Medications include: 1. Ame-Colace. 2. Aspirin. 3. Nitroglycerin PRN. FAMILY HISTORY: Negative for heart disease. REVIEW OF SYSTEMS: Review of systems is otherwise negative. PHYSICAL EXAMINATION: VITAL SIGNS: Blood pressure 115/76, pulse regular. HEAD, EYES, EARS, NOSE, THROAT: Negative. NECK: 2+ carotid upstrokes, no bruits. LUNGS: Clear. HEART: Regular with no murmurs, rubs or gallops. ABDOMEN: Abdomen soft. No bruits. EXTREMITIES: Without edema. 2+ distal pulses. NEUROLOGIC: Grossly intact. CARDIOLOGY STUDIES: Echocardiogram shows well-preserved left ventricular systolic function with no segmental wall motion abnormalities. EKG showed sinus bradycardia and nonspecific T wave changes. LABS: Hemoglobin 11.5, potassium 3.1, creatinine 1.1. Troponin negative x2. CK-MB normal. LDL 77. HDL 48. TSH 2.2. DIAGNOSIS: 1. Atypical chest pain. 2. Syncope. 3. Well-preserved left ventricular systolic function. 4. Hypertension. 5. Anxiety and depression. 6. Schizophrenia. 7. Migraine headaches. 8. Smoking. DISPOSITION: Ms. Jackson has been ruled out for myocardial infarction by enzymes. Her chest pain is atypical. At this time, her blood pressure is stable. She has mild sinus bradycardia. Echocardiogram shows well preserved left ventricular systolic function and no wall motion abnormalities. The patient was strongly encouraged to quit smoking. I recommend to titrate aggressive modification of her cardiac risk factors. She will follow up with her primary care physician after discharge. MD BARNEY Latham /2:58 PM /5:14 PM TY
[2017-04-08 20:41] LABS: TROPONIN I LESS THAN 0.02 NG/ML (0.02-0.05)
--- NOTE | 2017-04-08 22:53 | EKG ---
Date Performed: 04/07/2017 Time Performed: 23:44:19 PTAGE: 42 years EKG: SINUS BRADYCARDIA ANTERIOR T-WAVE CHANGES, POSSIBLE ISCHEMIC IN NATURE ABNORMAL ECG PREVIOUS TRACING : 11/21/2015 05.19 Compared to prior tracing no significant change DOCTOR: Wilmar Moya Interpretating Date/Time 04/08/2017 22:52:24
[2017-04-09 04:33] VITALS: BP 116/59; PULSE 48; RESP 18; TEMP 98; O2SAT 100
[2017-04-09 08:00] VITALS: BP 124/60; PULSE 57; RESP 20; TEMP 98.5; O2SAT 95
[2017-04-09 08:09] VITALS: PULSE 52
[2017-04-09] MEDS: SODIUM CHLOR 0.9% 1000 ML INJ 1,000 ML IV SCH (08:40)
[2017-04-09] MEDS: SODIUM CHLORIDE 0.9% FLUSH 10 ML FLUSH IV FLUSH SCH (08:40)
[2017-04-09] MEDS: ASPIRIN EC 81 MG TABEC PO SCH (08:41)
[2017-04-09] MEDS: DOCUSATE SODIUM 50 MG/SENNA 8.6 MG TAB PO SCH (08:41)
[2017-04-09 09:45] LABS: AUTOMATED NEUTROPHIL # 1.7 TH/MM3 (1.8-7.7); BASOPHIL # 0.1 TH/MM3 (0-0.2); BASOPHIL % 0.9 % (0.0-2.0); EOSINOPHIL # 0.3 TH/MM3 (0-0.4); EOSINOPHIL % 5.2 % (0.0-4.0); HEMOGLOBIN 11.9 GM/DL (11.6-15.3); LYMPHOCYTE # 3.3 TH/MM3 (1.0-4.8); MEAN CELL VOLUME 87.4 FL (80.0-100.0); MEAN CORPUSCULAR HEMOGLOBIN 28.9 PG (27.0-34.0); MEAN CORPUSCULAR HGB CONC 33.1 % (32.0-36.0); MEAN PLATELET VOLUME 8.6 FL (7.0-11.0); MONOCYTE # 0.4 TH/MM3 (0-0.9); NEUT % 29.9 % (16.0-70.0); PLATELET COUNT 299 TH/MM3 (150-450); RED BLOOD COUNT 4.12 MIL/MM3 (4.00-5.30); RED CELL DISTRIBUTION WIDTH 15.6 % (11.6-17.2); WHITE BLOOD COUNT 5.7 TH/MM3 (4.0-11.0)
[2017-04-09 10:00] LABS: ALBUMIN 3.3 GM/DL (3.4-5.0); ALT (GPT) 13 U/L (10-53); AST (GOT) 10 U/L (15-37); BICARBONATE 24.8 MEQ/L (21.0-32.0); BLOOD UREA NITROGEN 9 MG/DL (7-18); CALCIUM 8.6 MG/DL (8.5-10.1); CHLORIDE 107 MEQ/L (98-107); CREATININE 1.03 MG/DL (0.50-1.00); GLOMERULAR FILTRATION RATE 71 ML/MIN (>89); GLUCOSE,RANDOM 81 MG/DL (74-106); SODIUM (NA) 139 MEQ/L (136-145)
[2017-04-09 10:06] LABS: ALKALINE PHOSPHATASE 56 U/L (45-117); TOTAL BILIRUBIN ADULT 0.5 MG/DL (0.2-1.0); TOTAL PROTEIN 7.3 GM/DL (6.4-8.2)
--- NOTE | 2017-04-09 10:48 | HHI.DCPOC ---
Discharge Care Plan Diagnosis: (1) Atypical chest pain (2) Stress at home Additional Problems Recommend to stop tobacco use due to increase risk of cardiovascular disease. Goals to Promote Your Health * To prevent worsening of your condition and complications * To maintain your health at the optimal level Directions to Meet Your Goals Take your medications as prescribed Follow your dietary instruction Follow activity as directed Keep your appointments as scheduled Take your immunizations and boosters as scheduled If your symptoms worsen call your PCP, if no PCP go to Urgent Care Center or Emergency Room Smoking is Dangerous to Your Health. Avoid second hand smoke Call the 24-hour hour crisis hotline for domestic abuse at Sanna Swift MD Apr 09, 2017 10:48
--- NOTE | 2017-04-09 10:49 | HHI.DS ---
Discharge Summary Admission Date Apr 08, 2017 at 00:49 Discharge Date: Apr 09, 2017 Admitting Diagnosis Chest pain/Syncope and Collapse (1) Syncope ICD Code: R55 - Syncope and collapse Diagnosis: Principal (2) Chest pain ICD Code: R07.9 - Chest pain, unspecified Diagnosis: Principal Status: Acute (3) Bradycardia ICD Code: R00.1 - Bradycardia, unspecified Diagnosis: Principal (4) HTN (hypertension) ICD Code: I10 - Essential (primary) hypertension Diagnosis: Secondary (5) Hypokalemia ICD Code: E87.6 - Hypokalemia Diagnosis: Secondary (6) Renal insufficiency ICD Code: N28.9 - Disorder of kidney and ureter, unspecified Diagnosis: Secondary (7) Rhabdomyolysis ICD Code: M62.82 - Rhabdomyolysis Diagnosis: Secondary (8) Tobacco abuse ICD Code: Z72.0 - Tobacco use Diagnosis: Secondary Procedures The hospital course. Brief History - From Admission This is a 42 year-old female w/ a PMH of Anxiety, Depression, Schizophrenia, Migraines, HTN and Tobacco Abuse who presented to the ER after syncopal event. Per pt she was at work when she had acute onset of left-sided chest pain, reports associated lightheadedness/dizziness and subsequent syncopal event. No LOC. Denies fever, chills, cough or SOB. No h/o similar symptoms in the past. No reported seizure like activity. On arrival, BP 135/79, HR 51, O2 sat 100% on RA, Afebrile. CBC unremarkable. Creatinine 1.12, previously 1.10 on . K+ 3.1. Troponin negative. CPK 214. INR 1.1. Urine Drug Screen positive for THC. UA negative. CXR with no acute findings. CBC/BMP: 04/09/17 0831 04/09/17 0831 Significant Findings Laboratory Tests Test 04/07/17 23:45 04/08/17 11:50 04/08/17 20:06 04/09/17 08:31 Red Blood Count 3.86 MIL/MM3 (4.00-5.30) Hemoglobin 11.5 GM/DL (11.6-15.3) Hematocrit 32.9 % (35.0-46.0) Monocytes (%) (Auto) 8.3 % (0.0-8.0) Creatinine 1.12 MG/DL (0.50-1.00) 1.03 MG/DL (0.50-1.00) Aspartate Amino Transf (AST/SGOT) 13 U/L (15-37) 10 U/L (15-37) Potassium Level 3.1 MEQ/L (3.5-5.1) Estimat Glomerular Filtration Rate 64 ML/MIN (>89) 71 ML/MIN (>89) Total Creatine Kinase 214 U/L (26-192) Troponin I LESS THAN 0.02 NG/ML LESS THAN 0.02 NG/ML LESS THAN 0.02 NG/ML Urine Cannabinoids Screen POS (NEG) Lymphocytes (%) (Auto) 57.0 % (9.0-44.0) Eosinophils (%) (Auto) 5.2 % (0.0-4.0) Neutrophils # (Auto) 1.7 TH/MM3 (1.8-7.7) Albumin 3.3 GM/DL (3.4-5.0) Imaging Last Impressions Chest X-Ray 04/07/17 2343 Signed Impressions: Service Date/Time: Saturday, April 08, 2017 00:08 - CONCLUSION: No acute disease. Elie Lee MD PE at Discharge GENERAL: In no acute distress NECK: Supple, trachea midline. No JVD or lymphadenopathy. CARDIOVASCULAR: Rate bradycardia and rhythm without murmurs, gallops, or rubs. RESPIRATORY: Breath sounds equal bilaterally. No accessory muscle use. GASTROINTESTINAL: Abdomen soft, non-tender, nondistended. MUSCULOSKELETAL: No cyanosis, or edema. BACK: Nontender without obvious deformity. No CVA tenderness. Pt update on day of discharge Follow up for chest pain. Deny any chest pain. Over telemetry shows bradycardia but she is asymptomatic. Denies any shortness of breathing, palpitation, lightheadedness/dizziness. She has no complaint. Hospital Course This is a 42-year-old female presented with a syncopal episode and atypical chest pain Atypical chest pain -Most likely musculoskeletal versus anxiety. Pain resolved. Echo reviewed relatively normal. Troponins negative. LDL 77. Patient blood pressure was normal.hospital course. Farmworker [employer] consulted and stated that very unlikely due to chronic in nature but recommend that patient stopped tobacco use. Bradycardia -Patient her weight has been the 40s and today in the 30s. She is asymptomatic special events assistant consulted and did not recommend any further intervention except for any medical management needed. Recommend smoking cessation. Syncope: acute onset of lightheadedness/dizziness w/ subsequent syncopal event. No head trauma reported. -May be secondary to anxiety versus panic attack. -See treatment as above. No episodes or hospice patient. Besides bradycardia no other events on telemetry. Hypokalemia: K+ 3.1. -Replenish as needed. Tobacco Abuse: Pt counselled. Ativan prn. Smoking cessation. She stated that she will not smoke anymore. Pt Condition on Discharge: Good Discharge Disposition: Discharge Home Discharge Time: <= 30 minutes Discharge Instructions DIET: Follow Instructions for: Heart Healthy Diet Activities you can perform: Regular-No Restrictions Follow up Referrals: PCP Follow-up - 1 Week Continued Medications: Albuterol Neb (Albuterol Neb) 2.5 Mg/0.5 Ml Neb 2.5 MG NEB Q1H PRN for PRN, #1 NEBULE 0 Refills Note: The Albuterol Sulfate Inhalation Solution is concentrated and must be diluted. Read complete instructions carefully before using. Sanna Swift MD Apr 09, 2017 10:48
[2017-04-09 12:09] VITALS: BP 124/85; PULSE 50; RESP 20; TEMP 97.5; O2SAT 100
== END 2017-04-09 13:10 | disposition home or self-care (01) ==
LOC: NEPD 22:52 → NEDA 04-08 00:49 → NEPFCDU 04-08 01:10
PROVIDERS: ADMIT Family Medicine; ATTEND Family Medicine
DX: R07.89 Other chest pain (principal); R55 Syncope and collapse; I10 Essential (primary) hypertension; R00.1 Bradycardia, unspecified; E87.6 Hypokalemia; N28.9 Disorder of kidney and ureter, unspecified; M62.82 Rhabdomyolysis; R42 Dizziness and giddiness; F17.210 Nicotine dependence, cigarettes, uncomplicated; G40.909 Epilepsy, unspecified, not intractable, without status epilepticus; G43.909 Migraine, unspecified, not intractable, without status migrainosus
CPT/HCPCS: 71010; 80053; 80061; 80307; 81001; 82550; 82552; 83735; 83880; 84443; 84484; 84703; 85025; 85610; 85730; 93005; 93306; 96361; 96374; 99285; G0378; J2270; J7030

== ENCOUNTER 2017-07-23 03:00 | Emergency (ER) | payer SELFPAY ==
[~2017-07-23] VITALS: Ht 172.7 cm; Wt 75.0 kg
[~2017-07-23 03:00] MED LIST changes: -DEPA250T2 PO; -ERYTOIN10 RIGHT EYE; -IBUP1TAB7 PO; -PROZ20CA11 PO; -RISP1 PO; -ZOFR4TAB3 SL
[2017-07-23 03:04] VITALS: BP 127/74; PULSE 76; RESP 15; TEMP 98.3; O2SAT 95
--- NOTE | 2017-07-23 06:10 | PD ---
HPI Chief Complaint: Cold / Flu Symptoms Time Seen by Provider: 03:26 Travel History International Travel<30 days: No Contact w/Intl Traveler<30days: No Traveled to known affect area: No History of Present Illness HPI pt called 911 for cold flu like symptom pt in room 33 and asking to leave, " if you feel better can one just leave" SHe has no complaint after arriving and tkae EVAC for a cold flu like feeling , No other complaint and felt this way for a few days . Vague Historian [facility] Past Medical History Asthma: Yes Anxiety: Yes Depression: Yes Cancer: No Cardiovascular Problems: Yes Chest Pain: Yes Diabetes: No Diminished Hearing: No Endocrine: No Gastrointestinal Disorders: Yes (REFLUX) GERD: Yes Genitourinary: Yes (UTI) Hypertension: Yes Immune Disorder: No Musculoskeletal: No Neurologic: Yes ("BLACKOUT SPELLS", MIGRAINES) Psychiatric: Yes (SCHIZOPHRENIA) Reproductive: No Respiratory: Yes (ASTHMA) Immunizations Current: No Migraines: Yes Schizophrenia: Yes PNEUMOCCOCAL Vaccine (Year): 3 ?: Not Menopausal: No : 6 Para: 5 Miscarriage: 0 : 1 Tubal Ligation: Yes Past Surgical History Abdominal Surgery: Yes (Gall bladder) Cholecystectomy: Yes Gynecologic Surgery: Yes (TUBAL) Other Surgery: Yes (TUBAL LIGATION, GALLBLADDER) Social History Alcohol Use: Yes (Occasionally) Tobacco Use: Yes (1 ppd) Substance Use: Yes (Marijuana) Allergies-Medications (Allergen,Severity, Reaction): Coded Allergies: No Known Allergies (Verified Allergy, Unknown, 07/23/17) Reported Meds & Prescriptions Reported Meds & Active Scripts Active No Active Prescriptions or Reported Medications Review of Systems Except as stated in HPI: all other systems reviewed are Neg General / Constitutional: Positive: Fever, Chills HENT: Positive: Sore Throat Physical Exam Narrative GENERAL: non septic non toxic appearing SKIN: Warm and dry. HEAD: Atraumatic. Normocephalic. EYES: Pupils equal and round. No scleral icterus. No injection or drainage. ENT: No nasal bleeding or discharge. Mucous membranes pink and moist. NECK: Trachea midline. No JVD. CARDIOVASCULAR: Regular rate and rhythm. RESPIRATORY: No accessory muscle use. Clear to auscultation. Breath sounds equal bilaterally. GASTROINTESTINAL: Abdomen soft, non-tender, nondistended. Hepatic and splenic margins not palpable. MUSCULOSKELETAL: Extremities without clubbing, cyanosis, or edema. No obvious deformities. NEUROLOGICAL: Awake and alert. No obvious cranial nerve deficits. Motor grossly within normal limits. Five out of 5 muscle strength in the arms and legs. Normal speech. PSYCHIATRIC: Appropriate mood and affect; insight and judgment normal. Data Data Last Documented VS Orders Orders Ed Discharge Order (07/23/17 06:08) MDM Medical Decision Making Medical Screen Exam Complete: Yes Emergency Medical Condition: Yes Differential Diagnosis viral illness vs bacterial vs secondary gain of ER visit other Narrative Course Pt feels fine and wanted to leave before I could finish decision making process due to critical care for other ER pateints I discharge her because there is no obvious emergancy that needs urgent work up , Advised to take tylenol for symptons Diagnosis Primary Impression: Well adult exam Patient Instructions: General Instructions, Viral Syndrome (ED) Scripts No Active Prescriptions or Reported Meds Disposition: 01 DISCHARGE HOME Condition: Stable Roland Dockery MD Jul 23, 2017 06:10
== END 2017-07-23 06:23 | disposition home or self-care (01) ==
LOC: NEPC 03:00
DX: Z00.00 Encounter for general adult medical examination without abnormal findings (principal); J02.9 Acute pharyngitis, unspecified; R50.9 Fever, unspecified; F12.90 Cannabis use, unspecified, uncomplicated; J45.909 Unspecified asthma, uncomplicated; K21.9 Gastro-esophageal reflux disease without esophagitis; I10 Essential (primary) hypertension; F20.9 Schizophrenia, unspecified; F17.200 Nicotine dependence, unspecified, uncomplicated
CPT/HCPCS: 99282

== ENCOUNTER 2017-08-05 01:55 | Emergency (ER) | payer SELFPAY ==
[~2017-08-05] VITALS: Ht 170.2 cm; Wt 100.0 kg
[2017-08-05 02:01] VITALS: BP 142/96; PULSE 97; RESP 22; TEMP 97.5; O2SAT 100
--- NOTE | 2017-08-05 02:50 | RADRPT ---
EXAM DATE/TIME: 08/05/2017 02:38 [facility] COMPARISON: No previous studies available for comparison. INDICATIONS : Shortness of breath. MEDICAL HISTORY : None. SURGICAL HISTORY : None. ENCOUNTER: Initial ACUITY: 3 days PAIN SCORE: 0/10 LOCATION: chest FINDINGS: PA and lateral views of the chest demonstrate the lungs to be symmetrically aerated without evidence of mass, infiltrate or effusion. The cardiomediastinal contours are unremarkable. Osseous structure s are intact. CONCLUSION: Normal examination. Chris Andrade Jr., MD on August 05, 2017 at 2:48 Board Certified Radiologist. This report was verified electronically.
[2017-08-05 03:05] VITALS: O2SAT 97
--- NOTE | 2017-08-05 03:10 | PD ---
HPI Chief Complaint: Medical Clearance Time Seen by Provider: 02:27 Travel History International Travel<30 days: No Contact w/Intl Traveler<30days: No Traveled to known affect area: No History of Present Illness HPI 42 y/o female states that she is stressed and has been having thoughts lately that she wants to hurt herself. She states that sometimes she gets short of breath also. She states she follows with a psychiatrist. She denies any other specific complaints at this time. Location is all over. Duration is couple of days. She denies specific modifying factors. She denies active plan. She agrees to voluntarily be here. PFSH Past Medical History Asthma: Yes Anxiety: Yes Depression: Yes Cancer: No Cardiovascular Problems: Yes Chest Pain: Yes Diabetes: No Diminished Hearing: No Endocrine: No Gastrointestinal Disorders: Yes (REFLUX) GERD: Yes Genitourinary: Yes (UTI) Hypertension: Yes Immune Disorder: No Implanted Vascular Access Dvce: No Musculoskeletal: No Neurologic: Yes ("BLACKOUT SPELLS", MIGRAINES) Psychiatric: Yes (SCHIZOPHRENIA) Reproductive: No Respiratory: Yes (ASTHMA) Immunizations Current: No Migraines: Yes Schizophrenia: Yes PNEUMOCCOCAL Vaccine (Year): 3 ?: Not Menopausal: No : 6 Para: 5 Miscarriage: 0 : 1 Tubal Ligation: Yes Past Surgical History Abdominal Surgery: Yes (Gall bladder) Cholecystectomy: Yes Gynecologic Surgery: Yes (TUBAL) Other Surgery: Yes (TUBAL LIGATION, GALLBLADDER) Social History Alcohol Use: Yes (Occasionally) Tobacco Use: Yes (1 ppd) Substance Use: Yes (Marijuana) Allergies-Medications (Allergen,Severity, Reaction): Coded Allergies: No Known Allergies (Verified Allergy, Unknown, 08/05/17) Reported Meds & Prescriptions Reported Meds & Active Scripts Active No Active Prescriptions or Reported Medications Review of Systems Except as stated in HPI: all other systems reviewed are Neg Physical Exam Narrative GENERAL: 42-year-old female in no apparent distress SKIN: Focused skin assessment warm/dry. HEAD: Atraumatic. Normocephalic. EYES: Pupils equal and round. No scleral icterus. No injection or drainage. ENT: No nasal bleeding or discharge. Mucous membranes pink and moist. NECK: Trachea midline. No JVD. CARDIOVASCULAR: Regular rate and rhythm. No murmur appreciated. RESPIRATORY: No accessory muscle use. Clear to auscultation. Breath sounds equal bilaterally. GASTROINTESTINAL: Abdomen soft, non-tender, nondistended. MUSCULOSKELETAL: No obvious deformities. No clubbing. No cyanosis. No edema. NEUROLOGICAL: Awake and alert. No obvious cranial nerve deficits. Motor grossly within normal limits. Normal speech. Data Data Last Documented VS Vital Signs Date Time Temp Pulse Resp B/P (MAP) Pulse Ox O2 Delivery O2 Flow Rate FiO2 08/05/17 03:05 97 Room Air 08/05/17 02:01 97.5 97 22 142/96 (111) Orders Orders Complete Blood Count With Diff (08/05/17 02:30) Basic Metabolic Panel (Bmp) (08/05/17 02:30) Oximetry (08/05/17 02:30) Iv Access Insert/Monitor (08/05/17 02:30) Psych Screen (08/05/17 02:30) Drug Screen, Random Urine (08/05/17 02:30) Alcohol (Ethanol) (08/05/17 02:30) Chest, Pa & Lat (08/05/17 ) Labs Laboratory Tests Test 08/05/17 03:00 White Blood Count 10.8 TH/MM3 Red Blood Count 4.18 MIL/MM3 Hemoglobin 12.4 GM/DL Hematocrit 36.3 % Mean Corpuscular Volume 86.9 FL Mean Corpuscular Hemoglobin 29.7 PG Mean Corpuscular Hemoglobin Concent 34.1 % Red Cell Distribution Width 15.3 % Platelet Count 253 TH/MM3 Mean Platelet Volume 8.7 FL Neutrophils (%) (Auto) 70.8 % Lymphocytes (%) (Auto) 22.2 % Monocytes (%) (Auto) 6.1 % Eosinophils (%) (Auto) 0.6 % Basophils (%) (Auto) 0.3 % Neutrophils # (Auto) 7.7 TH/MM3 Lymphocytes # (Auto) 2.4 TH/MM3 Monocytes # (Auto) 0.7 TH/MM3 Eosinophils # (Auto) 0.1 TH/MM3 Basophils # (Auto) 0.0 TH/MM3 CBC Comment DIFF FINAL Differential Comment Blood Urea Nitrogen 10 MG/DL Creatinine 1.04 MG/DL Random Glucose 109 MG/DL Calcium Level 8.9 MG/DL Sodium Level 141 MEQ/L Potassium Level 3.7 MEQ/L Chloride Level 110 MEQ/L Carbon Dioxide Level 22.1 MEQ/L Anion Gap 9 MEQ/L Estimat Glomerular Filtration Rate 70 ML/MIN Urine Opiates Screen NEG Urine Barbiturates Screen NEG Urine Amphetamines Screen NEG Urine Benzodiazepines Screen NEG Urine Cocaine Screen NEG Urine Cannabinoids Screen POS Ethyl Alcohol Level LESS THAN 3 MG/DL MDM Medical Decision Making Medical Screen Exam Complete: Yes Emergency Medical Condition: Yes Medical Record Reviewed: Yes (Past history confirmed) Interpretation(s) CBC & BMP Diagram 08/05/17 03:00 Calcium Level 8.9 Last 24 hours Impressions Chest X-Ray 08/05/17 0000 Signed Impressions: Service Date/Time: Saturday, August 05, 2017 02:38 - CONCLUSION: Normal examination. Chris Andrade Jr., MD Differential Diagnosis Depression, asthma, pneumonia Narrative Course We will check blood work, chest x-ray for medical clearance and patient agrees to voluntarily talk with psych. Patient medically cleared at 4:15 AM. Awaiting psychiatry screening Diagnosis Primary Impression: Suicidal ideations Scripts No Active Prescriptions or Reported Meds Maria C Florence MD Aug 05, 2017 03:10
[2017-08-05 03:22] LABS: AUTOMATED NEUTROPHIL # 7.7 TH/MM3 (1.8-7.7); BASOPHIL % 0.3 % (0.0-2.0); EOSINOPHIL # 0.1 TH/MM3 (0-0.4); EOSINOPHIL % 0.6 % (0.0-4.0); HEMATOCRIT 36.3 % (35.0-46.0); HEMOGLOBIN 12.4 GM/DL (11.6-15.3); LYMPH % 22.2 % (9.0-44.0); LYMPHOCYTE # 2.4 TH/MM3 (1.0-4.8); MEAN CELL VOLUME 86.9 FL (80.0-100.0); MEAN CORPUSCULAR HEMOGLOBIN 29.7 PG (27.0-34.0); MEAN CORPUSCULAR HGB CONC 34.1 % (32.0-36.0); MEAN PLATELET VOLUME 8.7 FL (7.0-11.0); MONO % 6.1 % (0.0-8.0); MONOCYTE # 0.7 TH/MM3 (0-0.9); NEUT % 70.8 % (16.0-70.0); PLATELET COUNT 253 TH/MM3 (150-450); RED BLOOD COUNT 4.18 MIL/MM3 (4.00-5.30); RED CELL DISTRIBUTION WIDTH 15.3 % (11.6-17.2); WHITE BLOOD COUNT 10.8 TH/MM3 (4.0-11.0)
[2017-08-05 03:33] LABS: BICARBONATE 22.1 MEQ/L (21.0-32.0); BLOOD UREA NITROGEN 10 MG/DL (7-18); CALCIUM 8.9 MG/DL (8.5-10.1); CHLORIDE 110 MEQ/L (98-107); CREATININE 1.04 MG/DL (0.50-1.00); GLOMERULAR FILTRATION RATE 70 ML/MIN (>89); GLUCOSE,RANDOM 109 MG/DL (74-106); SODIUM (NA) 141 MEQ/L (136-145)
[2017-08-05 07:16] VITALS: BP 146/85; PULSE 50; RESP 18; O2SAT 100
--- NOTE | 2017-08-05 08:26 | PD ---
Physical Exam Narrative This patient has been medically clear by previous team and was here for voluntary for psych evaluation. Pt now states that she has an appointment with her psychiatrist today and would like to go to that instead. Denies any current suicidal or homicidal ideations , visual or auditory hallucinations. Do not feel that pt is a threat to herself or others at this time. Pt has been medically clear. Return precautions given. Data Data Last Documented VS Vital Signs Date Time Temp Pulse Resp B/P (MAP) Pulse Ox O2 Delivery O2 Flow Rate FiO2 08/05/17 07:16 50 18 146/85 (105) 100 Room Air 08/05/17 02:01 97.5 Orders Orders Complete Blood Count With Diff (08/05/17 02:30) Basic Metabolic Panel (Bmp) (08/05/17 02:30) Oximetry (08/05/17 02:30) Iv Access Insert/Monitor (08/05/17 02:30) Psych Screen (08/05/17 02:30) Drug Screen, Random Urine (08/05/17 02:30) Alcohol (Ethanol) (08/05/17 02:30) Chest, Pa & Lat (08/05/17 ) Ed Discharge Order (08/05/17 08:26) Labs Laboratory Tests Test 08/05/17 03:00 White Blood Count 10.8 TH/MM3 Red Blood Count 4.18 MIL/MM3 Hemoglobin 12.4 GM/DL Hematocrit 36.3 % Mean Corpuscular Volume 86.9 FL Mean Corpuscular Hemoglobin 29.7 PG Mean Corpuscular Hemoglobin Concent 34.1 % Red Cell Distribution Width 15.3 % Platelet Count 253 TH/MM3 Mean Platelet Volume 8.7 FL Neutrophils (%) (Auto) 70.8 % Lymphocytes (%) (Auto) 22.2 % Monocytes (%) (Auto) 6.1 % Eosinophils (%) (Auto) 0.6 % Basophils (%) (Auto) 0.3 % Neutrophils # (Auto) 7.7 TH/MM3 Lymphocytes # (Auto) 2.4 TH/MM3 Monocytes # (Auto) 0.7 TH/MM3 Eosinophils # (Auto) 0.1 TH/MM3 Basophils # (Auto) 0.0 TH/MM3 CBC Comment DIFF FINAL Differential Comment Blood Urea Nitrogen 10 MG/DL Creatinine 1.04 MG/DL Random Glucose 109 MG/DL Calcium Level 8.9 MG/DL Sodium Level 141 MEQ/L Potassium Level 3.7 MEQ/L Chloride Level 110 MEQ/L Carbon Dioxide Level 22.1 MEQ/L Anion Gap 9 MEQ/L Estimat Glomerular Filtration Rate 70 ML/MIN Urine Opiates Screen NEG Urine Barbiturates Screen NEG Urine Amphetamines Screen NEG Urine Benzodiazepines Screen NEG Urine Cocaine Screen NEG Urine Cannabinoids Screen POS Ethyl Alcohol Level LESS THAN 3 MG/DL MDM Supervised Visit with MARK ANTHONY: No Diagnosis Primary Impression: Suicidal ideations Patient Instructions: General Instructions Departure Forms: Tests/Procedures Additional Instruction: Please follow up with your psychiatrist at your appointment. Return to the ED immediately if you have thoughts of hurting yourself or others. Med/Other Pt SpecificInfo: No Change to Meds Scripts No Active Prescriptions or Reported Meds Disposition: 01 DISCHARGE HOME Condition: Stable Jennifer Argueta DO Aug 05, 2017 08:26
== END 2017-08-05 08:53 | disposition home or self-care (01) ==
LOC: NEPE 01:55
DX: R45.851 Suicidal ideations (principal); F12.90 Cannabis use, unspecified, uncomplicated; F17.200 Nicotine dependence, unspecified, uncomplicated; R06.02 Shortness of breath
CPT/HCPCS: 71046; 80048; 80307; 85025; 99284

== ENCOUNTER 2017-08-17 23:59 | Emergency (ER) | payer BC ==
[2017-08-18 00:14] VITALS: BP 141/70; PULSE 60; RESP 18; TEMP 97.4; O2SAT 100
--- NOTE | 2017-08-18 00:59 | PD ---
HPI Chief Complaint: Psychiatric Symptoms Time Seen by Provider: 00:18 Travel History International Travel<30 days: No Contact w/Intl Traveler<30days: No Traveled to known affect area: No History of Present Illness HPI Patient is a 42-year-old female presented to emergency department voluntarily for psychiatric evaluation. Patient states that she feels suicidal, she states that she been feeling this way for several hours. She reports that her son is in residential and she tries to send him money to make sure he has but he needs. She reports a history of depression, she states that her medications are not working. She reports that she went to her psychiatrist on 08 August and got medication refills but they still are not working, and they do not change her medicines. She denies feeling suicidal in the past but denies any previous attempts. She has no current plan. Symptom onset is unknown, patient has no physical complaints at this time. PFSH Past Medical History Asthma: Yes Anxiety: Yes Depression: Yes Chest Pain: Yes GERD: Yes Hypertension: Yes Neurologic: Yes ("BLACKOUT SPELLS", MIGRAINES) Migraines: Yes Schizophrenia: Yes PNEUMOCCOCAL Vaccine (Year): 3 ?: Not Menopausal: No : 6 Para: 5 Miscarriage: 0 : 1 Tubal Ligation: Yes Past Surgical History Abdominal Surgery: Yes (Gall bladder) Cholecystectomy: Yes Gynecologic Surgery: Yes (TUBAL) Other Surgery: Yes (TUBAL LIGATION, GALLBLADDER) Social History Alcohol Use: Yes (Occasionally) Tobacco Use: Yes (1 ppd) Substance Use: Yes (Marijuana) Allergies-Medications (Allergen,Severity, Reaction): Coded Allergies: No Known Allergies (Verified Allergy, Unknown, 08/18/17) Reported Meds & Prescriptions Reported Meds & Active Scripts Active No Active Prescriptions or Reported Medications Review of Systems Except as stated in HPI: all other systems reviewed are Neg Psychiatric: Positive: Depression, Suicidal Ideations Physical Exam Narrative GENERAL: Well-developed, well-nourished, alert -[place]i female. Presenting in no acute distress. SKIN: Warm and dry. HEAD: Atraumatic. Normocephalic. EYES: Pupils equal and round. No scleral icterus. No injection or drainage. ENT: No nasal bleeding or discharge. Mucous membranes pink and moist. NECK: Trachea midline. No JVD. CARDIOVASCULAR: Regular rate and rhythm. RESPIRATORY: No accessory muscle use. Clear to auscultation. Breath sounds equal bilaterally. GASTROINTESTINAL: Abdomen soft, non-tender, nondistended. Hepatic and splenic margins not palpable. MUSCULOSKELETAL: Extremities without clubbing, cyanosis, or edema. No obvious deformities. NEUROLOGICAL: Awake and alert. No obvious cranial nerve deficits. Motor grossly within normal limits. Five out of 5 muscle strength in the arms and legs. Normal speech. PSYCHIATRIC: Depressed mood and affect; insight and judgment normal. Data Data Last Documented VS Vital Signs Date Time Temp Pulse Resp B/P (MAP) Pulse Ox O2 Delivery O2 Flow Rate FiO2 08/18/17 00:14 97.4 60 18 141/70 (93) 100 Room Air Orders Orders Psych Screen (08/18/17 00:23) MDM Medical Decision Making Medical Screen Exam Complete: Yes Emergency Medical Condition: Yes Medical Record Reviewed: Yes Interpretation(s) Vital Signs Date Time Temp Pulse Resp B/P (MAP) Pulse Ox O2 Delivery O2 Flow Rate FiO2 08/18/17 00:14 97.4 60 18 141/70 (93) 100 Room Air Differential Diagnosis Mood disorder versus suicidal ideations versus depression versus substance abuse versus other Narrative Course Patient is a 42-year-old female presenting voluntarily to emergency department for psychiatric evaluation. Patient's vital signs are stable. She is cooperative. Mental health screening discussed with the patient. Psychiatric screen ordered. Patient was in the emergency department with a similar complaint on August 05, 2017. Labs are reviewed from that visit. Patient is medically cleared for psychiatric evaluation at this time. Diagnosis Primary Impression: Medical clearance for psychiatric admission Scripts No Active Prescriptions or Reported Meds Condition: Stable Cate Whitehead August 18, 2017 00:59
[2017-08-18] MEDS ORDERED: BUSP10TA PO (01:55)
[2017-08-18] MEDS ORDERED: DIVA500T PO (01:55)
[2017-08-18] MEDS ORDERED: RISP2TAB2 PO (01:55)
[2017-08-18] MEDS ORDERED: IBUPROFEN 800 MG TAB PO ONE (04:45)
[2017-08-18] MEDS ORDERED: NICOTINE 14 MG/24 HR PATCH T-DERMAL ONE (06:15)
--- NOTE | 2017-08-18 07:24 | PD ---
Physical Exam Date Seen by Provider: August 18, 2017 Time Seen by Provider: 07:22 Narrative 42-year-old -[place] female who is here voluntarily for psychiatric evaluation and medically cleared for that purpose, is requesting to leave prior to being seen by psychiatric services. She continues to be medically stable at this time. Patient was here on a voluntary basis is not felt to be Oleary act appropriate. Patient should follow-up with [facility]. Data Data Last Documented VS Vital Signs Date Time Temp Pulse Resp B/P (MAP) Pulse Ox O2 Delivery O2 Flow Rate FiO2 08/18/17 00:14 97.4 60 18 141/70 (93) 100 Room Air Orders Orders Psych Screen (08/18/17 00:23) Ibuprofen (Motrin) (08/18/17 04:45) Nicotine 14 Mg Patch.24 Hr (Habitrol 14 (08/18/17 06:15) MDM Medical Record Reviewed: Yes Supervised Visit with MARK ANTHONY: Yes Narrative Course 42-year-old -[place] female who is here voluntarily for psychiatric evaluation and medically cleared for that purpose, is requesting to leave prior to being seen by psychiatric services. She continues to be medically stable at this time. Patient was here on a voluntary basis is not felt to be Oleary act appropriate. Patient should follow-up with [facility]. Diagnosis Primary Impression: Medical clearance for psychiatric admission Referrals: [facility] Patient Instructions: General Instructions Disposition: 01 DISCHARGE HOME Condition: Stable Vikash Bearden August 18, 2017 07:24
== END 2017-08-18 07:28 | disposition home or self-care (01) ==
LOC: NEPD 23:59
DX: R45.851 Suicidal ideations (principal); F12.90 Cannabis use, unspecified, uncomplicated; F17.200 Nicotine dependence, unspecified, uncomplicated
CPT/HCPCS: 99283

== ENCOUNTER 2017-09-19 19:40 | Emergency (ER) | payer BC ==
[~2017-09-19 19:40] MED LIST changes: -ALBU.5I NEB; +BUSP10TA PO; +DIVA500T PO; +RISP2TAB2 PO
== END 2017-09-19 20:20 | disposition left against medical advice (07) ==
LOC: NED 19:40
DX: R52 Pain, unspecified (principal)
CPT/HCPCS: 99281